=== PATIENT | male | born 1955 | race Caucasian/White ===

== ENCOUNTER → 2018-01-11 | Outpatient (CLI) | payer OTHER | END | disposition home or self-care (01) | LOC: KCIC MRI 12:05 | DX: S96.812A Strain of other specified muscles and tendons at ankle and foot level, left foot, initial encounter (principal); R60.0 Localized edema; X58.XXXA Exposure to other specified factors, initial encounter; Y93.89 Activity, other specified; Y92.89 Other specified places as the place of occurrence of the external cause; Y99.8 Other external cause status | CPT/HCPCS: 73718; 73721 ==

== ENCOUNTER → 2018-02-16 | Outpatient (CLI) | payer OTHER | END | disposition home or self-care (01) | LOC: RAD 10:38 | DX: S91.104A Unspecified open wound of right lesser toe(s) without damage to nail, initial encounter (principal); E11.621 Type 2 diabetes mellitus with foot ulcer; X58.XXXA Exposure to other specified factors, initial encounter; Y93.89 Activity, other specified; Y92.89 Other specified places as the place of occurrence of the external cause; Y99.2 Volunteer activity | CPT/HCPCS: 73630 ==

== ENCOUNTER → 2018-02-24 | Outpatient (CLI) | payer OTHER | END | disposition home or self-care (01) | LOC: PMGWOUND 08:07 | DX: E11.621 Type 2 diabetes mellitus with foot ulcer (principal); L97.514 Non-pressure chronic ulcer of other part of right foot with necrosis of bone; M19.90 Unspecified osteoarthritis, unspecified site | CPT/HCPCS: 93923; 99214 ==

== ENCOUNTER → 2018-03-24 | Outpatient (CLI) | payer OTHER ==
[2018-02-28 15:00] VITALS: BP 137/85
[~2018-03-24] MED LIST: BUPR150T6 PO; DEXT30TA2 PO; INSU100I13 SQ; INSU100I32 SQ; LIRA0.6P2 SQ; LISI-338 PO; METF10003 PO; METF500T5 PO; SULF1TAB24 PO; TRAM50TA PO; VALA1000 PO
[2018-03-24 10:22] LABS: CALCIUM 10.3 mg/dL (8.5-10.1); CREATININE 1.2 mg/dL (0.7-1.3); GFR 61.6; POTASSIUM 4.2 mmol/L (3.5-5.1)
[2018-03-24 10:26] LABS: BASO # 0.1 x10^3/uL (0.0-0.2); BASO % 1 % (0-3); EOS # 0.3 x10^3/uL (0.0-0.7); EOS % 3 % (0-3); HEMATOCRIT 52.7 % (39.0-53.0); HEMOGLOBIN 18.4 g/dL (13.0-17.5); LYMPH # 3.3 x10^3/uL (1.0-4.8); LYMPH % 31 % (24-48); MEAN CORPUSCULAR HEMOGLOBIN 31 pg (25-35); MEAN CORPUSCULAR HGB CONC 35 g/dL (31-37); MEAN CORPUSCULAR VOLUME 90 fL (79-100); MONO # 0.8 x10^3/uL (0.0-1.1); MONO % 7 % (0-9); NEUT # 6.2 x10^3uL (1.8-7.7); NEUT % 59 % (31-73); PLATELET COUNT 179 x10^3/uL (140-400); RED BLOOD COUNT 5.88 x10^6/uL (4.30-5.70); RED CELL DISTRIBUTION WIDTH 14.2 % (11.5-14.5); WHITE BLOOD COUNT 10.6 x10^3/uL (4.0-11.0)
== END | disposition home or self-care (01) ==
LOC: LAB 09:43
PROVIDERS: ATTEND Physician Assistant Surgical
DX: Z01.812 Encounter for preprocedural laboratory examination (principal); E11.9 Type 2 diabetes mellitus without complications; I10 Essential (primary) hypertension; Z90.49 Acquired absence of other specified parts of digestive tract
CPT/HCPCS: 36415; 80048; 85025

== ENCOUNTER 2018-04-27 18:27 | Emergency (ER) | payer OTHER ==
[~2018-04-27] VITALS: Ht 190.5 cm; Wt 108.9 kg
[~2018-04-27 18:27] MED LIST changes: -METF10003 PO; +METF10007 PO; +METF500T16 PO; -METF500T5 PO
[2018-04-27 21:40] VITALS: BP 150/96
[2018-04-27] MEDS ORDERED: CAPS60CR2 TP (22:40)
--- NOTE | 2018-04-27 22:42 | PHYS DOC ---
Past Medical History Past Medical History: Anxiety, Diabetes-Type II Additional Past Medical Histor: RECENT TENDON SURGERY ON L FOOT Past Surgical History: Appendectomy, Other Additional Past Surgical Histo: right 5th toe amputation, LEFT TENDON REPAIR Alcohol Use: Rarely Drug Use: None Adult General Chief Complaint Chief Complaint: OTHER COMPLAINTS [facility] Patient is a 62 year old male who presents with numbness and tingling to his bilateral lower extremities. The patient states that he is a diabetic but recently had a toe amputation on the right foot and a tendon repair on the left foot. He states that that was his wake up call and he has now been working very hard to get his blood sugars under control. He states that he has had this numbness and tingling off and on for approximately a month. He states tonight he just got very nervous about it. He called his primary care physician who suggested that he present to the emergency department. The patient denies any injury to his feet or any new sores. He states that his surgical wounds are healing nicely. Review of Systems Review of Systems Constitutional: Denies fever or chills [] Eyes: Denies change in visual acuity, redness, or eye pain [] HENT: Denies nasal congestion or sore throat [] Respiratory: Denies cough or shortness of breath [] Cardiovascular: No additional information not addressed in HPI [] GI: Denies abdominal pain, nausea, vomiting, bloody stools or diarrhea [] : Denies dysuria or hematuria [] Musculoskeletal: See history of present illness Integument: Denies rash or skin lesions [] Neurologic: Denies headache, focal weakness or sensory changes [] Endocrine: Denies polyuria or polydipsia [] All other systems were reviewed and found to be within normal limits, except as documented in this note. Allergies Allergies Allergies Coded Allergies Type Severity Reaction Last Updated Verified No Known Drug Allergies 02/26/18 No Physical Exam Physical Exam Constitutional: Well developed, well nourished, no acute distress, non-toxic appearance. [] Cardiovascular:Heart rate regular rhythm, no murmur [] Lungs & Thorax: Bilateral breath sounds clear to auscultation [] Abdomen: Bowel sounds normal, soft, no tenderness, no masses, no pulsatile masses. [] Skin: Warm, dry, no erythema, no rash. [] Back: No tenderness, no CVA tenderness. [] Extremities: Mild tingling and numbness reported, no cyanosis, no clubbing, ROM intact, no edema, patient is wearing a surgical boot to the left lower extremity from his tendon repair. [] Neurologic: Alert and oriented X 3, normal motor function, normal sensory function, no focal deficits noted. [] Psychologic: Affect normal, judgement normal, mood normal. [] Current Patient Data Vital Signs Vital Signs Date Time Temp Pulse Resp B/P (MAP) Pulse Ox O2 Delivery O2 Flow Rate FiO2 04/27/18 21:40 97.5 88 14 150/96 (114) 96 Room Air 97.5 EKG EKG [] Radiology/Procedures Radiology/Procedures [] Course & Med Decision Making Course & Med Decision Making Pertinent Labs and Imaging studies reviewed. (See chart for details) []The patient and I discussed diabetic neuropathy. He is interested in trying capsaicin for his symptoms. I agreed to write a prescription for this. He is to follow-up with his primary care for further investigation into his numbness and tingling. He is in agreement with this plan. Dragon Disclaimer Dragon Disclaimer This electronic medical record was generated, in whole or in part, using a voice recognition dictation system. Departure Departure Impression: Primary Impression: Diabetic neuropathy Disposition: 01 HOME, SELF-CARE Condition: STABLE Referrals: GIULIANA ROSS MD (PCP) Patient Instructions: Diabetic Neuropathy Additional Instructions: Use the cream as directed on unbroken skin. Do not apply it near your surgical sites until they are completely healed. Follow-up with your primary care provider if not improving in one week or return to the emergency department if worsening. Scripts Capsaicin (CAPSAICIN) 60 Gm Cream..g. 60 GM TP QID, #1 EACH Prov: NAYAN ESTEVEZ APRN 04/27/18 Attending Signature Attending Signature I have reviewed the PA/[employer]ISITING TEACHER's note and plan of care. I was available for consultation as needed during the patient's visit in the emergency department. I agree with the clinical impression, plan, and disposition. NAYAN ESTEVEZ APRN Apr 27, 2018 22:42 HAYDEE MADISON DO May 01, 2018 03:48
== END 2018-04-27 23:30 | disposition home or self-care (01) ==
LOC: ER 18:27
DX: E11.40 Type 2 diabetes mellitus with diabetic neuropathy, unspecified (principal)
CPT/HCPCS: 99281

== ENCOUNTER → 2018-07-26 | Outpatient (CLI) | payer OTHER ==
[~2018-07-26] MED LIST changes: +CAPS60CR2 TP
--- NOTE | 2018-07-26 17:54 | KCIC ---
Bilateral lower extremity arterial ultrasound History: Diabetes mellitus Findings: Multiple grayscale, color, and duplex spectral analysis sonographic images were acquired of the lower extremity arteries bilaterally. There are no previous similar exams. No focal vessel occlusion is demonstrated. On the right, there are mostly triphasic waveforms other than biphasic waveforms of the right peroneal artery and anterior tibial artery. On the left, there are triphasic waveforms to the level of popliteal artery, monophasic waveforms of the left anterior tibial and dorsalis pedis arteries at which there are relatively lower velocities. No significant focal stenosis is demonstrated. There is diffuse plaque. Velocities in cm/sec: RIGHT Common femoral artery 123 Profunda femoris artery 77 Proximal SFA 98 Mid SFA 83 Distal SFA 63 Popliteal artery 62 Anterior tibial artery 51 Dorsalis pedis artery 26 Posterior tibial artery 86 Peroneal artery 37 LEFT: Common femoral artery 105 Profunda femoris artery 68 Proximal SFA 103 Mid SFA 78 Distal SFA 60 Popliteal artery 62 Anterior tibial artery 28 Dorsalis pedis artery 12 Posterior tibial artery 101 Peroneal artery 33 Impression: 1. No vessel occlusion is demonstrated. There is diffuse plaque. There is probable greater degree of narrowing near the origins or more proximal left dorsalis pedis and anterior tibial arteries at which there are monophasic waveforms. Ankle brachial indices: Right CLAIRE was 1.03, left 1.02 considered within normal limits. IMPRESSION: 1. Ankle brachial indices are within normal limits. Electronically signed by: Michele Adrian MD (07/26/2018 5:50 PM) [id number]
== END | disposition home or self-care (01) ==
LOC: KCIC US 14:38
PROVIDERS: ATTEND Orthopaedic Surgery
DX: I70.292 Other atherosclerosis of native arteries of extremities, left leg (principal); E11.9 Type 2 diabetes mellitus without complications
CPT/HCPCS: 93922; 93923